=== PATIENT | male | born 1960 | race Two or more races ===

== ENCOUNTER 2023-10-25 07:53 | Emergency (ER) | payer OTHER, SELFPAY ==
[~2023-10-25] VITALS: Ht 182.9 cm; Wt 118.8 kg
[2023-10-25 08:45] VITALS: BP 160/89; PULSE 68; RESP 16; TEMP 98.5; O2SAT 96
[2023-10-25] MEDS ORDERED: CEPH500C PO (08:45)
[2023-10-25] MEDS: TETANUS-DIPTH-ACEL PERTUSSIS 0.5ML SYR Tdap IM ONE (08:53)
== END 2023-10-25 09:17 | disposition home or self-care (01) ==
LOC: ER 07:53
DX: S61.412A Laceration without foreign body of left hand, initial encounter (principal); Z79.899 Other long term (current) drug therapy; W26.8XXA Contact with other sharp object(s), not elsewhere classified, initial encounter; Y93.89 Activity, other specified; Y92.89 Other specified places as the place of occurrence of the external cause; Y99.0 Civilian activity done for income or pay
CPT/HCPCS: 12002; 90471; 90715